=== PATIENT | female | born 1990 | race Hispanic/Latino ===

== ENCOUNTER 2018-06-06 18:09 | Emergency (ER) | payer MEDICAID ==
[2018-06-06 18:10] VITALS: BMI 42.0
[2018-06-06 18:51] VITALS: O2SAT 100
--- NOTE | 2018-06-06 19:07 | ED PDOC ---
HPI: Female Pain Time Seen by Provider: 06/06/18 19:06 Chief Complaint (Nursing): Female Genitourinary Chief Complaint (Provider): VAGINAL DISCOMFORT History Per: Patient (27 Y/O FEMALE HERE WITH VAGINAL DISCOMFORT/PRURITIS X 2 DAYS. NOTES DYSURIA BUT FEELS DISCOMFORT IS REALLY VAGINAL. NO NEW PARTNERS/ NO SEXUAL INTERCOURSE IN 1 YEAR. NO ABD PAIN/VOMITING/DIARRHEA/FEVERS/CHILLS.) Past Medical History Reviewed: Historical Data, Nursing Documentation, Vital Signs Vital Signs: Last Vital Signs Temp 98.3 F 06/06/18 18:49 Pulse 70 06/06/18 18:49 Resp 16 06/06/18 18:49 BP 99/64 L 06/06/18 18:49 Pulse Ox 100 06/06/18 18:49 - Surgical History Surgical History: Cholecystectomy (3 years ago) - Family History Family History: States: Unknown Family Hx - Immunization History Hx Tetanus Toxoid Vaccination: Yes Hx Influenza Vaccination: No Hx Pneumococcal Vaccination: No - Home Medications Home Medications: Ambulatory Orders Medication Instructions Recorded Acetaminophen with Codeine 2 tab PO Q6 PRN #12 tablet 05/20/16 [Tylenol with Codeine #3 Tablet] Cephalexin [cephalexin] 1 tab PO Q12 #20 cap 05/20/16 Ibuprofen [Motrin Tab] 1 tab PO TID PRN #30 tab 05/20/16 Sulfamethoxazole/Trimethoprim 1 tab PO BID #20 tab 05/20/16 [Bactrim DS 800 mg-160 mg] Clindamycin HCl [Clindamycin HCl] 300 mg PO QID #28 cap 05/27/16 Clotrimazole 1% Cream [Lotrimin 1%] 0.5 gm TP DAILY #1 tube 06/06/18 Miconazole [Monistat 3] 200 mg VAG DAILY #3 sup 06/06/18 - Allergies Allergies/Adverse Reactions: Allergies Allergy/AdvReac Type Severity Reaction Status Date / Time No Known Allergies Allergy Verified 06/06/18 18:49 Review of Systems ROS Statement: Except As Marked, All Systems Reviewed And Found Negative Physical Exam - Reviewed Nursing Documentation Reviewed: Yes Vital Signs Reviewed: Yes - Physical Exam Appears: Positive for: Well, Non-toxic, No Acute Distress Head Exam: Positive for: ATRAUMATIC, NORMAL INSPECTION, NORMOCEPHALIC Skin: Positive for: Normal Color, Warm, DRY Eye Exam: Positive for: EOMI, Normal appearance, PERRL ENT: Positive for: Normal ENT Inspection Neck: Positive for: Normal, Painless ROM Cardiovascular/Chest: Positive for: Regular Rate, Rhythm Respiratory: Positive for: CNT, Normal Breath Sounds Gastrointestinal/Abdominal: Positive for: Normal Exam, Soft Pelvic Exam: Positive for: Bimanual Exam Normal. Negative for: No Cerv. Motion Tender, Discharge, Tender Adnexa Back: Positive for: Normal Inspection Extremity: Positive for: Normal ROM Neurologic/Psych: Positive for: Alert, Oriented - Laboratory Results Urine POC: Negative Urine dip results: Positive for: Leukocyte Esterase (trace). Negative for: Blood, Nitrate, Ketones, Glucose, Bilirubin, Protein - ECG O2 Sat by Pulse Oximetry: 100 - Progress ED Course And Treament: patient notes persistent pruritis externally. Will write rx for clotrimazole cream x 3 days . Disposition - Clinical Impression Clinical Impression: Vaginitis - Patient ED Disposition Is Patient to be Admitted: No - Disposition [facility] Disposition: Routine/Home Disposition Time: 19:32 Condition: FAIR Prescriptions: Clotrimazole 1% Cream [Lotrimin 1%] 0.5 gm TP DAILY #1 tube Miconazole [Monistat 3] 200 mg VAG DAILY #3 sup Instructions: Vaginitis
[2018-06-06 19:27] LABS: SQUAMOUS EPITHIAL 4 /hpf (0-5); URINE BILIRUBIN NEGATIVE (NEGATIVE); URINE BLOOD NEGATIVE (NEGATIVE); URINE CLARITY CLOUDY (Clear); URINE COLOR YELLOW (YELLOW); URINE GLUCOSE (UA) NEG (Normal); URINE HYALINE CAST 0-2 /hpf (0-2); URINE LEUKOCYTE ESTERASE LARGE Leu/uL (Negative); URINE PROTEIN 30 mg/dL (NEGATIVE); URINE UROBILINOGEN 0.2-1.0 mg/dL (0.2-1.0)
[2018-06-06 19:52] VITALS: BP 104/62; PULSE 72; RESP 18; TEMP 98.5
== END 2018-06-06 19:52 | disposition home or self-care (01) ==
LOC: H.ER 18:09
DX: N76.0 Acute vaginitis (principal)

== ENCOUNTER 2018-12-20 08:46 | Emergency (ER) | payer MEDICAID ==
[2018-12-20 08:48] VITALS: BMI 42.0
[2018-12-20 09:28] VITALS: RESP 16; TEMP 98.1; O2SAT 98
--- NOTE | 2018-12-20 09:48 | ED PDOC ---
HPI: Female Pain Time Seen by Provider: 12/20/18 09:05 Chief Complaint (Nursing): Female Genitourinary Chief Complaint (Provider): Vaginal itching, burning History Per: Patient, [employer] (FELICE ASL [id number]) History/Exam Limitations: no limitations Onset/Duration Of Symptoms: Days (3) Current Symptoms Are (Timing): Still Present Quality Of Discomfort: Burning, "Pain" Associated Symptoms: Urinary Symptoms. denies: Fever, Chills, Nausea, Vomiting Additional History Per: Patient Additional Complaint(s): 27yo female, otherwise well, comes to ER reporting vaginal burning, itching, and pain x 3 days. She also reports some burning upon urination but denies any pain. Otherwise, no fever, chills, hematuria, low back pain. Patient states she does shave and is unsure if her symptoms are due to that. PMD: Dr. Manuel Abnormal Vaginal Bleeding: No Past Medical History Reviewed: Historical Data, Nursing Documentation, Vital Signs Vital Signs: Last Vital Signs Temp 98.1 F 12/20/18 09:14 Pulse 91 H 12/20/18 09:14 Resp 16 12/20/18 09:14 BP 103/61 12/20/18 09:14 Pulse Ox 98 12/20/18 09:14 - Medical History PMH: No Chronic Diseases - Surgical History Surgical History: Cholecystectomy (3 years ago) - Family History Family History: States: Unknown Family Hx - Immunization History Hx Tetanus Toxoid Vaccination: Yes Hx Influenza Vaccination: No Hx Pneumococcal Vaccination: No - Home Medications Home Medications: Ambulatory Orders Medication Instructions Recorded Acetaminophen with Codeine 2 tab PO Q6 PRN #12 tablet 05/20/16 [Tylenol with Codeine #3 Tablet] Cephalexin [cephalexin] 1 tab PO Q12 #20 cap 05/20/16 Ibuprofen [Motrin Tab] 1 tab PO TID PRN #30 tab 05/20/16 Sulfamethoxazole/Trimethoprim 1 tab PO BID #20 tab 05/20/16 [Bactrim DS 800 mg-160 mg] Clindamycin HCl 300 mg PO QID #28 cap 05/27/16 Clotrimazole 1% Cream [Lotrimin 1%] 0.5 gm TP DAILY #1 tube 06/06/18 Miconazole [Monistat 3] 200 mg VAG DAILY #3 sup 06/06/18 Clotrimazole 1% Cream [Lotrimin 1% 1 applic TOP BID PRN #1 tube 12/20/18 CREAM] - Allergies Allergies/Adverse Reactions: Allergies Allergy/AdvReac Type Severity Reaction Status Date / Time No Known Allergies Allergy Verified 12/20/18 09:13 Review of Systems ROS Statement: Except As Marked, All Systems Reviewed And Found Negative Constitutional: Negative for: Fever, Chills Genitourinary Female: Positive for: Vaginal Discharge, Other (vaginal burning; pain upon urination). Negative for: Dysuria, Frequency, Hematuria Physical Exam - Reviewed Nursing Documentation Reviewed: Yes Vital Signs Reviewed: Yes - Physical Exam Appears: Positive for: No Acute Distress Head Exam: Positive for: NORMAL INSPECTION Skin: Positive for: Normal Color Eye Exam: Positive for: Normal appearance Cardiovascular/Chest: Positive for: Regular Rate, Rhythm. Negative for: Tachycardia Respiratory: Positive for: Normal Breath Sounds. Negative for: Respiratory Distress Gastrointestinal/Abdominal: Positive for: Soft. Negative for: Tenderness, Guarding, Rebound Pelvic Exam: Positive for: Discharge (white discharge noted in vaginal vault), Other (erythema with minimal scaling on intertriginous area). Negative for: Blood, Lesions Back: Negative for: L CVA Tenderness, R CVA Tenderness Extremity: Positive for: Normal ROM Neurological/Psych: Positive for: Awake, Alert, Oriented (x 3) - ECG O2 Sat by Pulse Oximetry: 98 (RA) Pulse Ox Interpretation: Normal Medical Decision Making Medical Decision Making: Impression: Vaginal discharge, burning urination; r/o UTI Plan: -- UA -- Udip 1015 Pelvic exam performed with KIM Chamberlain as ripsawyer; see physical exam findings. 1030 Patient informed of physical exam findings; will be discharged home with prescription for lotrimine cream. Patient agreeable with plan for discharge. [employer] used to ensure understanding. Scribe Attestation: Documented by Keesha Montes De Oca acting as a scribe for Iris Du MD. Provider Scribe Attestation: All medical record entries made by the Scribe were at my direction and personally dictated by me. I have reviewed the chart and agree that the record accurately reflects my personal performance of the history, physical exam, medical decision making, and the department course for this patient. I have also personally directed, reviewed, and agree with the discharge instructions and disposition. Disposition - Clinical Impression Clinical Impression: Intertriginous candidiasis - Disposition Disposition: Routine/Home Disposition Time: 10:30 Condition: STABLE Additional Instructions: FOLLOW-UP WITH PMD WITHIN 2 DAYS FOR REEVALUATION. Prescriptions: Clotrimazole 1% Cream [Lotrimin 1% CREAM] 1 applic TOP BID PRN #1 tube PRN Reason: Rash Instructions: Yeast Infection (DC) Forms: [employer] ([place])
[2018-12-20 11:14] VITALS: BP 110/61; PULSE 88
== END 2018-12-20 11:20 | disposition home or self-care (01) ==
LOC: H.ER 08:46
DX: B37.3 Candidiasis of vulva and vagina (principal); N89.8 Other specified noninflammatory disorders of vagina

== ENCOUNTER 2018-12-25 17:05 | Emergency (ER) | payer MEDICAID ==
[2018-12-25 17:05] VITALS: BMI 42.0
--- NOTE | 2018-12-25 19:44 | ED PDOC ---
HPI: Abdomen Time Seen by Provider: 12/25/18 18:46 Chief Complaint (Nursing): Abdominal Pain Chief Complaint (Provider): Gen Weakness, fever, vomiting History Per: Patient History/Exam Limitations: language barrier, other (History and Physical obtained by using [place]ian Sign Language bullard operator #[id number]) Onset/Duration Of Symptoms: Days Outside of [place] travel?: No Current Symptoms Are (Timing): Still Present (since yesterday) Pain Scale Rating Of: 7 Location Of Pain/Discomfort: Other (bodyaches ) Associated Symptoms: Fever, Chills, Nausea, Diarrhea, Loss Of Appetite. denies: Vomiting, Chest Pain, Urinary Symptoms Exacerbating Factors: None Alleviating Factors: None Additional History Per: Patient Additional Complaint(s): 27y/o female with medical hx presents to the ed c/o fever, nausea, vomiting, cough, runny nose since yesterday. Pt states she has been "dragging her feet" to get around since yesterday. Pt states her son who is also a patient in the ED has similar symptoms 2 days ago but now is feeling better. She states she feels nauseous but has not taken anything for fever in nausea, +poor appetite. Denies cp, sob, urinary complaints. Abnormal Vaginal Bleeding: No Past Medical History Reviewed: Historical Data, Nursing Documentation, Vital Signs Vital Signs: Last Vital Signs Temp 101.4 F H 12/25/18 17:17 Pulse 88 12/25/18 17:17 Resp 18 12/25/18 17:17 BP 104/69 12/25/18 17:17 Pulse Ox 99 12/25/18 17:17 - Medical History PMH: No Chronic Diseases - Surgical History Surgical History: Cholecystectomy (3 years ago) - Family History Family History: States: Unknown Family Hx - Immunization History Hx Tetanus Toxoid Vaccination: Yes Hx Influenza Vaccination: No Hx Pneumococcal Vaccination: No - Home Medications Home Medications: Ambulatory Orders Medication Instructions Recorded Acetaminophen with Codeine 2 tab PO Q6 PRN #12 tablet 05/20/16 [Tylenol with Codeine #3 Tablet] Cephalexin [cephalexin] 1 tab PO Q12 #20 cap 05/20/16 Ibuprofen [Motrin Tab] 1 tab PO TID PRN #30 tab 05/20/16 Sulfamethoxazole/Trimethoprim 1 tab PO BID #20 tab 05/20/16 [Bactrim DS 800 mg-160 mg] Clindamycin HCl 300 mg PO QID #28 cap 05/27/16 Clotrimazole 1% Cream [Lotrimin 1%] 0.5 gm TP DAILY #1 tube 06/06/18 Miconazole [Monistat 3] 200 mg VAG DAILY #3 sup 06/06/18 Clotrimazole 1% Cream [Lotrimin 1% 1 applic TOP BID PRN #1 tube 12/20/18 CREAM] - Allergies Allergies/Adverse Reactions: Allergies Allergy/AdvReac Type Severity Reaction Status Date / Time No Known Allergies Allergy Verified 12/25/18 17:20 Review of Systems Constitutional: Positive for: Fever, Chills, Weakness, Malaise Eyes: Negative for: Pain ENT: Positive for: Throat Pain. Negative for: Ear Pain, Mouth Swelling Cardiovascular: Negative for: Chest Pain Respiratory: Positive for: Cough. Negative for: Shortness of Breath, SOB with Exertion, Wheezing Gastrointestinal: Positive for: Nausea, Vomiting. Negative for: Abdominal Pain Genitourinary Female: Positive for: Dysuria Neurological: Positive for: Dizziness (SINCE YESTERDAY) Physical Exam - Reviewed Nursing Documentation Reviewed: Yes Vital Signs Reviewed: Yes - Physical Exam Appears: Positive for: Well, Non-toxic, No Acute Distress Head Exam: Positive for: ATRAUMATIC, NORMAL INSPECTION, NORMOCEPHALIC Skin: Positive for: Normal Color, Warm, DRY Eye Exam: Positive for: Normal appearance, PERRL ENT: Positive for: Normal ENT Inspection, Nasal Congestion (CLEAR DRAINAGE ), Pharyngeal Erythema. Negative for: Tonsillar Exudate, Tonsillar Swelling Neck: Positive for: Normal, Painless ROM Cardiovascular/Chest: Positive for: Regular Rate, Rhythm Respiratory: Positive for: CNT, Normal Breath Sounds Pulses-Radial (L): 2+ Pulses-Radial (R): 2+ Gastrointestinal/Abdominal: Positive for: Normal Exam, Bowel Sounds, Soft. Negative for: Tenderness, Mass, Distended Pelvic Exam: Positive for: External Exam Normal Back: Positive for: Normal Inspection. Negative for: L CVA Tenderness, R CVA Tenderness Extremity: Positive for: Normal ROM Neurological/Psych: Positive for: Awake, Alert, Normal Tone, Oriented Comments: ASL INTERPRETOR USED TO OBTAIN HISTORY COURT REPORTER NUMBER [id number] - ECG O2 Sat by Pulse Oximetry: 99 - Progress ED Course And Treament: CBC CMP INFLUENZA RAPID STREP UA UPREG 0.9 NS L BOLUS TYLENOL 650MG PO 2000: PT ENDORSED TO ELOY ZHONG, TO FOLLOW UP ON LAB RESULTS AND COURSE OF TX. Disposition - Clinical Impression Clinical Impression: Influenza - Disposition Disposition: Transfer of Care Disposition Time: 20:00 Condition: IMPROVED Forms: [employer] [facility] ([place]) Patient Signed Over To: Jl Rod Handoff Comments: FOLLOW UP ON LAB RESULTS AND COURSE OF TREATMENT - POA Present On Arrival: None
--- NOTE | 2018-12-25 20:21 | ED PDOC ---
- Laboratory Results Result Diagrams: 12/25/18 20:30 12/25/18 20:30 - ECG O2 Sat by Pulse Oximetry: 99 Medical Decision Making Medical Decision Making: Pt care assumed from Boone Guerra [employer] YOUTH SUPERVISOR at 1950 Re-evaluation indicates that the patient is stable and resting comfortably The patient tested positive for INfluenza A with symptoms that include a cough The patient will be tx with one dose of tamiflu in ED and rx for balance with benzonatate rx as well Disposition Counseled Patient/Family Regarding: Diagnosis, Need For Followup, Rx Given - Clinical Impression Clinical Impression: Influenza - POA Present On Arrival: None - Disposition Disposition: Routine/Home Disposition Time: 22:09 Condition: STABLE Additional Instructions: Take all medication Follow up with your PMD REST FLUIDS TAMIFLU [employer] Prescriptions: Benzonatate 1 cap PO TID #30 capsule Oseltamivir Phosphate [Tamiflu] 75 mg PO BID #10 capsule Instructions: Flu, Adult (DC), Flu Forms: [employer] ([place])
[2018-12-25 20:45] LABS: BASO # 0.1 K/uL (0.0-0.2); BASO % 1.2 % (0.0-2.0); EOS % 0.2 % (0.0-4.0); HEMOGLOBIN 10.8 g/dL (12.0-16.0); LYMPH # 1.7 K/uL (1.0-4.3); LYMPH % 28.3 % (20.0-40.0); MEAN CELL VOLUME 70.5 fl (81.0-99.0); MEAN CORPUSCULAR HEMOGLOBIN 22.2 pg (27.0-31.0); MEAN CORPUSCULAR HGB CONC 31.5 g/dL (33.0-37.0); MEAN PLATELET VOLUME 8.2 fl (7.2-11.7); MONO # 1.3 K/uL (0.0-0.8); NEUT # 2.8 K/uL (1.8-7.0); NEUT % 47.3 % (50.0-75.0); NRBC % 0.1 % (0.0-0.0); PLATELET COUNT 393 K/uL (130-400); RBC 4.86 Mil/uL (3.80-5.20); RED CELL DISTRIBUTION WIDTH 19.4 % (11.5-14.5); WHITE BLOOD COUNT 5.8 K/uL (4.8-10.8)
[2018-12-25 20:56] LABS: ALB/GLOB RATIO 1.2 (1.0-2.1); ALBUMIN 4.6 g/dL (3.5-5.0); ALT/SGPT 27 U/L (9-52); AST/SGOT 26 U/L (14-36); BLOOD UREA NITROGEN 8 mg/dl (7-17); CALCIUM 9.7 mg/dL (8.4-10.2); GFR NON-AFRICAN AMERICAN > 60
[2018-12-25 20:58] LABS: SQUAMOUS EPITHIAL 7 /hpf (0-5); URINE BACTERIA RARE (<OCC); URINE BILIRUBIN NEGATIVE (NEGATIVE); URINE BLOOD LARGE (NEGATIVE); URINE CLARITY CLOUDY (Clear); URINE COLOR YELLOW (YELLOW); URINE GLUCOSE (UA) NEG (NEGATIVE); URINE LEUKOCYTE ESTERASE TRACE Leu/uL (Negative); URINE PROTEIN 30 mg/dL (NEGATIVE)
[2018-12-25] MEDS: Sodium Chloride 0.9% 1,000 ML IV SCH ×4 (21:27→23:43)
[2018-12-25] MEDS ORDERED: Acetaminophen 160 mg/5 ml UD ONE (21:31)
[2018-12-25 22:16] LABS: ANISOCYTOSIS MODERATE; BANDS 3 % (0-2); HYPOCHROMIC SLIGHT; LYMPHOCYTE 25 % (20-50); MICROCYTOSIS SLIGHT; MONOCYTE 18 % (0-10); NEUTROPHIL 54 % (42-75); PLATELET ESTIMATE NORMAL (NORMAL); POIKILOCYTOSIS SLIGHT; POLYCHROMIC SLIGHT; TOTAL CELLS COUNTED 100
[2018-12-25 22:17] LABS: OVALOCYTES SLIGHT
[2018-12-25 22:49] VITALS: BP 97/72; PULSE 63; RESP 16; TEMP 99; O2SAT 100
== END 2018-12-25 23:00 | disposition home or self-care (01) ==
LOC: H.ER 17:05
DX: J11.1 Influenza due to unidentified influenza virus with other respiratory manifestations (principal)
CPT/HCPCS: 80053; 81003; 81025; 85025; 87070; 87430; 87804; 99284; J7030